=== PATIENT | female | born 1975 | race Caucasian/White ===

== ENCOUNTER → 2019-06-16 | Outpatient (CLI) | payer OTHER ==
--- NOTE | 2019-06-16 09:53 | PCVCIMAG ---
APPROVED REPORT Study performed: 06/16/2019 08:31:29 EXAM: Comprehensive 2D, Doppler, and color-flow Echocardiogram Patient Location: Echo lab Status: routine BSA: 1.72 HR: 85 bpmBP: 114/70 mmHg Rhythm: NSR Other Information Study Quality: Adequate Risk Factors: Cardiac Risk Factors: Hyperlipidemia Indications Chest Pain 2D Dimensions IVSd: 10.27 (7-11mm) LVDd: 44.76 mm PWd: 9.42 (7-11mm)Ascending Ao: 25.74 (22-36mm) LVDs: 32.19 (25-40mm) Left Atrium: 29.29 (27-40mm) Aortic Root: 27.35 mm LV Single Plane 4CH: 47.58 % LV Single Plane 2CH: 54.01 % Biplane EF: 50.5 % Volumes Left Atrial Volume (Systole) Single Plane 4CH: 41.95 mLSingle Plane 2CH: 46.71 mL LA ESV Index: 26.00 mL/m2 Aortic Valve AoV Peak Lamin.: 1.36 m/s AO Peak Gr.: 7.40 mmHgLVOT Max P.94 mmHg LVOT Max V: 1.11 m/s Mitral Valve E/A Ratio: 0.8 MV Decel. Time: 338.26 ms MV E Max Lamin.: 0.66 m/s MV A Lamin.: 0.81 m/s IVRT: 107.27 ms Pulmonary Valve PV Peak Lamin.: 0.95 m/sPV Peak Gr.: 3.59 mmHg Pulmonary Vein P Vein S: 0.31 m/s P Vein D: 0.43 m/s P Vein S/D Ratio: 0.72 Tricuspid Valve TR Peak Lamin.: 2.17 m/s TR Peak Gr.: 18.79 mmHg Left Ventricle The left ventricle is normal size. There is normal LV segmental wall motion. There is normal left ventricular wall thickness. The left ventricular systolic function is normal. The left ventricular ejection fraction is within the normal range. LVEF is 55%. Mild diastolic dysfunction is present (impaired relaxation pattern). Right Ventricle The right ventricle is normal size. The right ventricular systolic function is normal. Atria The left atrium size is normal. The right atrium size is normal. Aortic Valve The aortic valve is normal in structure. No aortic regurgitation is present. There is no aortic valvular stenosis. Mitral Valve The mitral valve is normal in structure. There is no mitral valve regurgitation noted. No evidence of mitral valve stenosis. Tricuspid Valve The tricuspid valve is normal in structure. Trace tricuspid regurgitation with PAP of 26 mmHg. Pulmonic Valve The pulmonary valve is normal in structure. Mild pulmonic regurgitation. Great Vessels The aortic root is normal in size. IVC is normal in size and collapses >50% with inspiration. Pericardium There is no pericardial effusion. There is no pleural effusion. <Conclusion> The left ventricular systolic function is normal. There is normal LV segmental wall motion. LVEF is 55%. Mild diastolic dysfunction The aortic valve is normal in structure. No aortic regurgitation or stenosis The mitral valve is normal in structure. No mitral valve regurgitation Trace tricuspid regurgitation with pulmonary artery pressure of 26 mmHg. There is no pericardial effusion.
== END | disposition home or self-care (01) ==
LOC: PCVCIMAG 08:56
PROVIDERS: ATTEND Internal Medicine
DX: I37.1 Nonrheumatic pulmonary valve insufficiency (principal); E78.5 Hyperlipidemia, unspecified; F41.8 Other specified anxiety disorders; Z88.1 Allergy status to other antibiotic agents
CPT/HCPCS: 93306